=== PATIENT | female | born 1990 | race Two or more races ===

== ENCOUNTER 2019-08-30 14:24 | Emergency (ER) | payer MEDICAID ==
[~2019-08-30] VITALS: Ht 149.9 cm; Wt 57.4 kg
[2019-08-30 15:06] VITALS: BP 104/59
[2019-08-30] MEDS ORDERED: IBUP-1984 PO (15:55)
[2019-08-30] MEDS ORDERED: AMOX-422 PO (15:55)
== END 2019-08-30 17:08 | disposition home or self-care (01) ==
LOC: ER 14:26
DX: H61.23 Impacted cerumen, bilateral (principal); Z79.2 Long term (current) use of antibiotics; Z79.899 Other long term (current) drug therapy
CPT/HCPCS: 69209; 99283

== ENCOUNTER 2020-12-12 21:21 | Emergency (ER) | payer MEDICAID ==
[2020-12-12 21:27] VITALS: BP 112/69
[2020-12-12 23:27] LABS: CLARITY,URINE SLIGHTLY CLOUDY (Clear); COLOR,URINE YELLOW (Yellow); GLUCOSE, URINE NEGATIVE (Neg); KETONES,URINE NEGATIVE (Neg); LEUKOCYTE ESTERASE ,URINE NEGATIVE (Neg); NITRITES, URINE NEGATIVE (Neg); OCCULT BLOOD,URINE NEGATIVE (Neg); PH,URINE 6.5 (4.8-8.0); PROTEIN,URINE NEGATIVE (Neg); URINE HCG NEGATIVE (NEG); UROBILINOGEN,URINE 0.2 E.U/dL (0.2-1.0)
[2020-12-12 23:41] LABS: UA COLLECTION TYPE NON-SPECIFIED
[2020-12-12 23:42] LABS: BACTERIA,URINE NONE SEEN /HPF (Neg); CAL OXALATE CRYSTALS FEW /HPF (NEGATIVE); MUCUS STRANDS MODERATE /LPF (Neg); RBC,URINE NONE SEEN /HPF (0-2); SQUAMOUS EPITHELIAL CELL,UR MANY /LPF (FEW); WBC,URINE 0-4 /HPF (0-4)
== END 2020-12-13 00:06 | disposition home or self-care (01) ==
LOC: ER 21:22
DX: M54.89 Other dorsalgia (principal); F19.90 Other psychoactive substance use, unspecified, uncomplicated; Z72.89 Other problems related to lifestyle
CPT/HCPCS: 81001; 81025; 99283

== ENCOUNTER 2024-09-12 18:28 | Emergency (ER) | payer MEDICAID ==
[~2024-09-12] VITALS: Ht 152.4 cm; Wt 59.7 kg
[2024-09-12 18:56] VITALS: BP 121/75; PULSE 66; TEMP 97.9; O2SAT 100
[2024-09-12 20:32] VITALS: RESP 16
[2024-09-12] MEDS: ketorolac trometh 15mg/ml vial 15 MG/ML ML IM ONE (20:32)
== END 2024-09-12 21:20 | disposition home or self-care (01) ==
LOC: ER 18:29
DX: S09.8XXA Other specified injuries of head, initial encounter (principal); S19.89XA Other specified injuries of other specified part of neck, initial encounter; V89.2XXA Person injured in unspecified motor-vehicle accident, traffic, initial encounter; Y93.89 Activity, other specified; Y92.89 Other specified places as the place of occurrence of the external cause; Y99.8 Other external cause status
CPT/HCPCS: 72040; 96372; 99283; J1885